=== PATIENT | male | born 1955 | race American Indian/Alaskan Native ===

== ENCOUNTER 2025-08-07 04:11 | Inpatient (IN) | payer MEDICARE, MEDICAID ==
[2025-08-07] VITALS (8 sets, daily range): BP systolic 102–145; BP diastolic 61–89; PULSE 52–82; RESP 12–18; TEMP 97.4–98.5; O2SAT 93–100
[~2025-08-07] VITALS: Ht 175.3 cm; Wt 95.0 kg
--- NOTE | 2025-08-07 04:23 | ELECTROCARDIOGRAPH REPORT ---
[facility] Test Date: 2025-08-07 Test Time: 04:15:48 Pat Name: YOVANA HIGH Department: EMERGENCY ROOM Room: [place] [address] Gender: M Seasoner Hand: DULCE : 1955 Requested By: EMI ANTHONY Order Number: [id number] Reading MD: Dr. Silver Anna Measurements Intervals [place] Rate: 79 P: 6 MD: 154 QRS: -34 QRSD: 103 T: 120 QT: 390 QTc: 448 Interpretive Statements Sinus rhythm Left axis deviation Nonspecific repol abnormality, lateral leads Electronically Signed On 08-08-2025 21:14:[address] Silver Anna Please click the below link to view image of tracing.
--- NOTE | 2025-08-07 04:43 | Physician Documentation ---
History of Present Illness ~ Chief Complaint: Shortness of Breath Stated Complaint: SOB A ALS Time Seen by MD: 04:43 HPI Patient presents to the emergency room with the acute onset shortness of breath this evening. No prior instances. He states he felt fine today however we will going to bed he developed shortness of breath. EMS on the scene found patient to be saturating 90% on room air. He denies diagnosis of COPD/asthma but does have a distant history of 30 pack years of smoking. No fevers. Denies one- sided leg pain Medication Reconciliation Allergies: Coded Allergies: dicloxacillin (Verified Allergy, Unknown, 08/07/25) Scheduled Aspirin (Aspirin EC), 1 TAB PO DAILY, (Reported) Atorvastatin Calcium (Atorvastatin Calcium), 1 TAB DAILY, (Reported) Carvedilol (Carvedilol), 1 TAB PO BID, (Reported) Cetirizine HCl (Cetirizine HCl), 1 TAB PO DAILY, (Reported) Duloxetine HCl (Duloxetine HCl), 1 CAP PO BID, (Reported) Insulin Lispro (Humalog), SQ TID, (Reported) Lisinopril (Lisinopril), 1 TAB PO DAILY, (Reported) Magnesium Oxide (Magnesium Oxide), 1 TAB PO DAILY, (Reported) Nabumetone (Nabumetone), 1 TAB PO BID, (Reported) Spironolactone (Spironolactone), 1 TAB PO DAILY, (Reported) Miscellaneous Medications Insulin Glargine-Yfgn (Insulin Glargine-Yfgn), (Reported) Review of Systems ROS All review of systems negative except as per HPI Physical Exam Vital Signs: Temperature: 98.5, Source: Oral, Heart Rate: 80, Respiratory Rate: 16, BP: 137/74, Pulse Oximetry: 93, Weight: 95.000 Oxygen Flow Rate: 2.0 Physical Exam General: Patient is awake, alert, oriented x4 in no acute distress and well appearing.~ Head: Normocephalic and atraumatic. Eyes: Conjunctival normal. EOMI. PERRL. ENT: Mucous membranes moist. Neck: Supple, trachea is midline. Chest: Clear to auscultation bilaterally without rales, rhonchi, or wheezes. There is no accessory muscle use or retractions. Cardiac: RRR without murmurs, gallops, or rubs. Abd: Soft, nondistended, nontender, with normoactive bowel sounds. No guarding, rebound, or rigidity. Progress Results/Orders Results/Orders Orders - BEN STREET MD Chest,Single View (08/07/25 04:22) Monitor (08/07/25 04:22) Saline Lock (08/07/25 04:22) Oxygen (08/07/25 04:22) Page Hospitalist (08/07/25 05:34) Fill Out Med Reconciliation (08/07/25 05:34) Completed Orders - BEN STRE[address] MD Chest,Single View (08/07/25 04:22) Cbc/Diff (08/07/25 04:22) BMP (08/07/25 04:22) PBNP (08/07/25 04:22) Electrocardiogram (08/07/25 04:22) Hs Troponin I W Calculations (08/07/25 04:22) Hs Troponin I W Calculations (08/07/25 06:22) Hs Troponin I W Calculations (08/07/25 07:22) Furosemide Inj (Lasix Inj) (08/07/25 05:35) Vital Signs 08/07/25 08/07/25 04:15 04:52 Temp 98.5 Pulse 80 Resp 16 19 B/P (MAP) 137/74 Pulse Ox 93 O2 Flow Rate 2.0 Laboratory Tests Test 08/07/25 04:52 White Blood Count 9.6 Red Blood Count 5.08 Hemoglobin 15.1 Hematocrit 44.1 Mean Corpuscular Volume 86.7 Mean Corpuscular Hemoglobin 29.6 Mean Corpuscular Hemoglobin Concent 34.2 Red Cell Distribution Width 14.2 Platelet Count 307 Mean Platelet Volume 9.1 Neutrophils (%) (Auto) 75.6 H Lymphocytes (%) (Auto) 14.5 L Monocytes (%) (Auto) 7.7 Eosinophils (%) (Auto) 1.3 Basophils (%) (Auto) 0.9 Neutrophils # (Auto) 7.2 Lymphocytes # (Auto) 1.4 Monocytes # (Auto) 0.7 Eosinophils # (Auto) 0.1 Basophils # (Auto) 0.1 CBC Comment Sodium Level 135 Potassium Level 4.1 Chloride Level 103 Carbon Dioxide Level 23.7 L Anion Gap 8 Blood Urea Nitrogen 14 Creatinine 0.79 Estimated GFR/1.73 m2 > 90 BUN/Creatinine Ratio 17.7 Glucose Level 290 H Calcium Level 8.9 Troponin I High Sensitivity 71 Pro-B-Type Natriuretic Peptide 965 H Albumin 3.2 L Chemistry Comments Medical Decision Making Additional information obtaine: old records Findings Patient presents to the emergency room with shortness of breath as per HPI. Workup consistent with possible new onset CHF. Lasix initiated. Patient that has not have a baseball glove stuffer and I believe he would benefit from admission Heart Score: 3 Differential Dx:Considerations: Include: anxiety, asthma, bronchitis, cardiogenic shock, CHF, COPD, dysrhythmia, hypertension, accelerated, hypertension, essential, hypertension, malignant, hyperventilation, hyponatremia, myocardial infarction, panic attack, pneumonia, pneumonitis, pneumothorax, PSVT, pulmonary embolism, respiratory distress, respiratory failure, sinusitis, upper resp. infection, other Departure Admitted to Inpatient Unit: yes, to hospitalist Impression: Primary Impression: New onset of congestive heart failure Condition: Guarded Referrals: NO PRIMARY CARE PROVIDER (PCP) Signature Scribe Signature: No scribe Attestation: The note accurately reflects work and decisions made by me.Ben Street MD 08/07/25 21:[address] MD Aug 07, 2025 04:43
--- NOTE | 2025-08-07 04:57 | RADIOLOGY REPORT ---
CHEST RADIOGRAPH INDICATION: CP TECHNIQUE: Single frontal view of the chest was obtained COMPARISON: None FINDINGS: Lines and Tubes: None Lungs: Mild diffuse increased prominence of the pulmonary vasculature. Left basilar pulmonary airspace disease. Pleura: No effusion. No pneumothorax. Cardiomediastinal contours: Cardiomegaly. Bones: Unremarkable IMPRESSION: 1. Cardiomegaly with mild pulmonary vascular congestion. 2. Left basilar pulmonary airspace disease.
[2025-08-07 05:09] LABS: MEAN PLATELET VOLUME 9.1 FL (7.4-10.4); RED CELL DISTRIBUTION WIDTH 14.2 % (11.5-14.5)
[2025-08-07 05:25] LABS: CREATININE 0.79 MG/DL (0.60-1.10); PRO BRAIN NATRIURETIC PEPTIDE 965 PG/ML (0-125); TOTAL CARBON DIOXIDE 23.7 MMOL/L (24-32); eCRCL 86 ML/MIN; eGFR > 90 ML/MIN
[2025-08-07] MEDS: furosemide 10 MG/1 ML 10ml inj IV ONE (05:35)
[2025-08-07] MEDS ORDERED: magnesium Cl slow-release 64mg tablet PO PRN (06:10)
[2025-08-07] MEDS ORDERED: magnesium hydroxide 30ml (MOM) UD suspension PO PRN (06:10)
[2025-08-07] MEDS ORDERED: magnesium sulf-water 2g/50mL 50 ML IV PRN (06:10)
[2025-08-07] MEDS ORDERED: potassium Cl 20 mEq SR tablet PO PRN ×2 (06:10)
[2025-08-07] MEDS ORDERED: mag hydrox/Alum hydrox/simeth 30ml oral suspension PO PRN (06:10)
[2025-08-07] MEDS ORDERED: magnesium sulf-water 4G/100mL 100 ML IV PRN (06:10)
[2025-08-07] MEDS ORDERED: ondansetron/PF 4mg/2ml inj IV PRN (06:10)
[2025-08-07] MEDS ORDERED: potassium Cl 40MEQ/1/2NS 520ml 520 ML IV PRN (06:10)
--- NOTE | 2025-08-07 06:19 | HISTORY AND PHYSICAL-Residence ---
History & Physical Providers to CC Resident Creating Document: CHRIS FERGUSON, FRANK ~ History of Present Illness Primary Medical Doctor: Ana Blunt Reason for Admit\Complaint: Shortness of breathe History of Present Illness 70-year-old male with past medical history of CAD status post CABG two-vessel, three-vessel in June 2024, type 2 diabetes mellitus, hypertension, hyperlipidemia, obstructive sleep apnea and without any formal CHF diagnosis came to ER with a chief complaints of shortness of breaths. He endorses that he got the shortness of breath from yesterday evening and he has been with shortness of breath for the past couple of weeks which got aggravated with walking for a while, associated with the orthopnea but not PND. He endorses irregular palpitations from this morning. He reports chest tightness, wheezing, cough with white mucoid sputum for the past 2-3 days. He reported decreased urine output and sleep disturbances and loss of appetite for the past 2 weeks. He also reported muscle cramps and swelling of the legs. Discussed code status with the patient and patient wants some time for decision and until then he wants us to continue full code. Allergies: Coded Allergies: dicloxacillin (Verified Allergy, Unknown, 08/07/25) Past Medical History Past Medical History CAD status post CABG Type 2 diabetes mellitus Hypertension Hyperlipidemia Obstructive sleep apnea Past Surgical History Surgical History Comment CABG double vessel and triple-vessel in June 2024 Family History Family History: Coronary artery disease in mother Past Social History Social History Comment He used to smoke 2 packs of cigarettes per day from the age of 39s but quit smoking in 2020 She denied alcohol, illicit drug use Living in home with family Smoking: Quit greater than 1 year ROS All Other Systems: Reviewed and Negative Constitutional: Reports: malaise, weakness Eyes: Reports: no symptoms reported ENT: Reports: no symptoms reported Respiratory: Reports: cough, orthopnea, shortness of breath, SOB at rest, wheezing Cardiovascular: Reports: edema, palpitations Gastrointestinal: Reports: no symptoms reported Genitourinary: Reports: no symptoms reported Male Genitalia: Reports: no symptoms reported Neurological: Reports: no symptoms reported Musculoskeletal: Reports: no symptoms reported Integumentary: Reports: no symptoms reported Allergic/Immunologic: Reports: no symptoms reported Hematologic/Lymphatic: Reports: no symptoms reported Endocrine: Reports: no symptoms reported Psychiatric: Reports: no symptoms reported Exam Vitals: Vital Signs Date Time Temp Pulse Resp B/P (MAP) Pulse Ox O2 Delivery O2 Flow Rate FiO2 08/07/25 04:52 19 08/07/25 04:15 98.5 80 93 2.0 General: General: Patient is awake, alert, oriented x4 in mild respiratory distress. On oxygen 2 L via nasal cannula Head: Normocephalic and atraumatic. Eyes: Conjunctival normal. EOMI. PERRL. Jugular venous distention is present ENT: Mucous membranes moist. Neck: Supple, trachea is midline. jugular venous distention is present . no carotid upstroke Chest and respiratory system: Bilateral basal inspiratory crepitations are heard . No wheezing There is no accessory muscle use or retractions. Cardiovascular system: Rate and rhythm is regular. Mathews S1. Loud S2 is present. Ejection systolic murmur 1-2 of 6 on aortic and pulmonary area. No gallops, or rubs. Abd: Soft, nondistended, nontender, with normoactive bowel sounds. No guarding, rebound, or rigidity. Central nervous system: Higher mental functions are intact. Motor system: Tone and bulk is normal. Power 5 x 5 in all limbs. Deep tendon reflexes are intact. No motor deficits are noted. Sensory system: Intact without any defects. No signs of cerebellar dysfunction and meningitis. Extremities : No pedal edema. No CVA tenderness. Skin: No rash, no ulcer, no cyanosis. Psychiatry: Affect and mood is normal Diagnostic Data Last Recorded Lab Results: 08/07/25 0452 08/07/25 0452 Advance Care Planning Advanced Care plannin - 30 Minutes Additional Plan Acute hypoxemic respiratory failure likely secondary to below 1)Acute CHF, new onset 2) obstructive sleep apnea with Possible pulmonary hypertension CBC is okay CMP showed blood glucose of 290 Troponin 71, proBNP 965 Chest x-ray showed cardiomegaly with bilateral pulmonary congestion. Left basilar pulmonary opacity Ordered echocardiogram Started on Lasix 40 mg IV b.i.d. Continued carvedilol 3.125 p.o. b.i.d., spironolactone 25 mg p.o. daily and we will add other GDMT medications of Jardiance, once we get the echocardiogram results. Type 2 diabetes mellitus Ordered A1c Blood glucose is 290 Started on hyperglycemic hypoglycemic insulin protocol with Lantus 18 units and high-dose Humalog supplemental protocol with a target of blood glucose between 140-180. Hypertension Blood pressure is 137 Started on losartan 50 mg p.o. daily Hyperlipidemia Ordered lipid panel Started on previous medication of atorvastatin 40 mg p.o. daily CAD status post CABG On aspirin 81 mg p.o. daily On atorvastatin 40 mg p.o. daily Obstructive sleep apnea Outpatient follow up with primary care physician and sleep physician Moderate protein malnutrition Hypoalbuminemia Started on ensure and live p.o. t.i.d. Code status: Full code DVT prophylaxis: SCDs and heparin Diet: Heart healthy diet Prognosis: Guarded Chris Ferguson IM resident, PGY2 Attending Physician Attestation Evaluation via HIPAA compliant A/V device. I discussed the case with the resident and I agree with the resident's documentation. 70-year-old man with a history of coronary artery disease s/p CABG, essential hypertension, dyslipidemia, diabetes mellitus type 2, and obstructive sleep apnea who now presents with symptoms and signs of acute congestive heart failure. The treatment plan includes: Diuresis to tolerance of BP and renal function. GDMT for congestive heart failure based on the results of a transthoracic echocardiogram. Aspirin and statin therapy for secondary CAD prevention. Control of hyperglycemia with a correctional insulin sliding scale. Time spent 50 minutes. Date of Service: Aug 07, 2025 Billing Provider: BRENDA ZHOU MD, VENKATESH, [facility] Aug 07, 2025 06:19 BRENDA ZHOU MD Aug 07, 2025 07:18
[2025-08-07] MEDS ORDERED: dextrose 50%-water 50ml dispensing syringe IV PRN ×2 (06:20)
[2025-08-07] MEDS ORDERED: glucagon, human recombinant 1mg kit SUBCUT PRN (06:20)
[2025-08-07] MEDS ORDERED: DEXTROSE 15 GM of carb/4 tabs (each vial/BOTTLE has 4 tablets) PO PRN ×2 (06:20)
[2025-08-07] MEDS: docusate sod 100mg capsule PO SCH (08:00)
[2025-08-07] MEDS: K and/or MAG REPLACEMENT MC SCH (08:00)
[2025-08-07] MEDS: INSULIN LISPRO 100 UNIT/ML INSULN.PEN MULTI-DOSE SQ SCH ×4 (09:06→21:19)
[2025-08-07] MEDS: Ensure Enlive - 237ML PO SCH (09:08)
[2025-08-07 09:10] LABS: CHOL/HDL RATIO 3.6 (0.00-4.99); CREATININE 0.89 MG/DL (0.60-1.10); LDL CHOLESTEROL 96 MG/DL (50-100); PHOSPHORUS 3.4 MG/DL (2.3-4.5); eCRCL 76 ML/MIN; eGFR 84 ML/MIN
[2025-08-07] MEDS: aspirin 81mg, enteric-coated 1 TAB TABLET.DR PO SCH (09:15)
[2025-08-07] MEDS: heparin, porcine 5000 units/ml vial SQ SCH (09:16)
[2025-08-07 09:19] LABS: APTT 27 SECONDS (22-32); INR 1.0 INR
[2025-08-07] MEDS ORDERED: CETI10TA14 PO (10:58)
[2025-08-07] MEDS ORDERED: CARV3.1244 PO (10:58)
[2025-08-07] MEDS ORDERED: INSU100I8 SQ (10:58)
[2025-08-07] MEDS ORDERED: NABU-139 PO (10:58)
[2025-08-07] MEDS ORDERED: ASPI-1397 PO (10:58)
[2025-08-07] MEDS ORDERED: ATOR40TA72 (10:58)
[2025-08-07] MEDS ORDERED: LISI2.5T14 PO (10:58)
[2025-08-07] MEDS ORDERED: MAGN400T56 PO (10:58)
[2025-08-07] MEDS ORDERED: SPIR25TA5 PO (10:58)
[2025-08-07] MEDS ORDERED: DULO20CA18 PO (10:58)
[2025-08-07] MEDS ORDERED: INSU100I99 (10:58)
--- NOTE | 2025-08-07 12:42 | CONSULTATION REPORT ---
History of Present Illness Providers to CC CC: DHEERAJ MCCULLOUGH MD ~ Reason for Admit\Admit Dx: Cardiology consultation Refering MD: Ana Blunt History of Present Illness Patient presents secondary to increased shortness for breath. He is followed by Dr. Alexander for Cardiology Services at the [facility]. He has known history of coronary artery disease status post three-vessel CABG in June 2024 followed by two-vessel redo CABG two weeks later. He has a uncontrolled diabetes mellitus, hypertension, hyperlipidemia, suspected sleep apnea. He states that he has had dyspnea on exertion for quite some time. He usually uses a motorized wheelchair when he goes grocery shopping. Yesterday he went to the [facility] in [place] and there was no motorized carts available. He walked around [facility] and felt very short of breath. He denies significant orthopnea or PND. He states he has difficulty sleeping. His recent cardiac tests were reviewed. In April 2025 had an echocardiogram that demonstrated an LVEF of 40%. He had a stress test that showed lateral defect that is fixed. Carotid ultrasound with very minimal carotid artery stenosis. There was moderate left subclavian stenosis noted. Currently, he is resting comfortably in bed. He is on room air. His high sensitivity troponins are minimally elevated. NT proBNP is very minimally elevated. Chest x-ray is clear. Allergies: Coded Allergies: dicloxacillin (Verified Allergy, Unknown, 08/07/25) Home Medications Home Medications Active Reported Humalog (Insulin Lispro) 100 Unit/Ml Insuln.pen SQ TID Insulin Glargine-Yfgn 100 Unit/Ml (3 Ml) Insuln.pen Lisinopril 2.5 Mg Tablet 1 Tab PO DAILY Magnesium Oxide 400 Mg (241.3 Mg Magnesium) Tablet 1 Tab PO HS Carvedilol 3.125 Mg Tablet 1 Tab PO BID Spironolactone 25 Mg Tablet 1 Tab PO DAILY Aspirin EC (Aspirin) 81 Mg Tablet. 1 Tab PO DAILY Cetirizine HCl 10 Mg Tablet 1 Tab PO Duloxetine HCl 20 Mg Capsule. 1 Cap PO BID Nabumetone 500 Mg Tablet 1 Tab PO BID Atorvastatin Calcium 40 Mg Tablet 1 Tab DAILY Past Medical History Medical History Comment Coronary artery disease Heart failure with reduced ejection fraction Uncontrolled type 2 diabetes mellitus Hypertension Hyperlipidemia Sleep apnea Past Surgical History Surgical History Comment Three-vessel CABG in June 2024 followed by two-vessel CABG redo Past Family History Family History: Bilateral below knee amputation MOTHER, Coronary artery disease in mother MOTHER, End stage renal disease MOTHER, FH: CABG (coronary artery bypass surgery) MOTHER, FH: diabetes mellitus FATHER, MOTHER, FH: hypertension FATHER, MOTHER, Past Social History Social History Comment Patient states he quit smoking greater than year ago. Denies drug or alcohol use. Physical Exam Last Vital Signs Recorded: RN Vital Signs have been reviewed: Yes, Temperature: 97.6, Source: Oral, Heart Rate: 78, Respiratory Rate: 15, BP: 146/89, Pulse Oximetry: 93, Weight: 95.000 Physical Exam General: Awake, alert, oriented. No apparent distress Neck: Supple. Normal range of motion. No JVD Respiratory: Lungs are clear to auscultation bilaterally. No respiratory distress. Chest: Normal shape and size. No accessory muscle use. Cardiovascular: Regular rate and rhythm. S1-S2. No murmur, gallop, rub. Extremities: No lower extremity edema, cyanosis or clubbing. Neurologic: Alert and oriented x4. Nonfocal Psychiatric: Normal mood and affect. Skin: Normal color. Warm and dry. Review of Systems ROS Review of systems negative except documented in HPI. Results EKG EKG EKG August 07, 2025 4:15 a.m.. Sinus rhythm: Left axis deviation. Nonspecific ST-T changes. Echocardiogram Echocardiogram Echocardiogram May 15, 2025 [facility]: LVEF 40%. Moderate LVH. Inferolateral akinesis. Anterolateral hypokinesis. Moderately dilated left atrium. Normal valve function. Cardiac Stress Test Cardiac Stress Test Stress test performed April 17, 2025 at the [facility] reveals a fixed lateral defect Diagram Lab Result Diagram: 08/07/25 0452 08/07/25 0842 Assessment/Plan Additional Plan Patient presents secondary to shortness for breath. The following is his problem list: NSTEMI No chest pain or pressure Started on heparin by the hospitalist service Lipids were checked in his LDL cholesterol is 96 --high intensity statin to keep LDL less than 55 --aspirin 81 mg daily for life --continue home Coreg --Cont med mgt and risk factor modification. Outpatient follow up. Heart failure with reduced ejection fraction, acute on chronic Presented with increased shortness for breath LVEF 40% --continue guideline directed medical therapy with Coreg, spironolactone, lisinopril. Consider addition of SGLT2 inhibitor Uncontrolled diabetes mellitus with hemoglobin A1c 10.1 --management per his primary team Subclavian stenosis --recommend monitoring blood pressure on the right arm Other comorbidities: Hypertension Hyperlipidemia Sleep apnea Case discussed with Dr. bharti Mccullough who agrees with the above. Supervising MD Supervising Physician: MARY ANN Narayan NP Aug 07, 2025 12:42
[2025-08-07 13:01] LABS: APTT 27 SECONDS (22-32); INR 1.1 INR
[2025-08-07] MEDS: heparin 10,000 units/1 ML INJ IV ONE (13:09)
[2025-08-07] MEDS: heparin 25,000 UNIT/250ml bag 250 ML IV PRN (13:10)
[2025-08-07] MEDS: MESSAGE TO NURSING IV ONE ×2 (13:16→21:00)
[2025-08-07] MEDS ORDERED: HYDROcodone/acetaminophen 10/325mg tab PO PRN (16:55)
[2025-08-07] MEDS: HYDROcodone/acetaminophen 5mg/325mg tablet PO PRN (16:56)
--- NOTE | 2025-08-07 17:07 | PROGRESS NOTE ---
Daily Progress Note Providers to CC ~ Antibiotic Timeout Antibiotic Ordered?: No Subjective The patient is troponin up trended to 367- the patient informed me he has been short of breath and was sweaty earlier but never experienced chest pain the patient is evaluated by Dr. Margaux Mccullough pacs specialist's who recommended medical management- that is the patient will remain on heparin drip for 48 hours which was started this morning. Echocardiogram is pending however cardiology informed me the patient has a an LVEF of 40% and recommended adding an SGLT2 inhibitor that is I will start the patient on Jardiance. Objective Vital Signs Date Time Temp Pulse Resp B/P (MAP) Pulse Ox O2 Delivery O2 Flow Rate FiO2 08/07/25 15:00 97.8 52 17 102/62 (75) 100 Room Air 08/07/25 09:10 1.0 Result Diagram: 08/07/25 0452 08/07/25 0842 Gen. No acute distress alert and oriented 4 Lungs clear to ascultation bilaterally, no wheezes rales or rhonchi appreciated Heart normal sinus rhythm no murmurs rubs or clicks noted Abdomen soft nontender bowel sounds are normoactive Lower extremities no clubbing cyanosis, nor edema appreciated bilaterally Coagulation Studies Laboratory Tests Test 08/07/25 12:30 Prothrombin Time 10.8 SECONDS (9.0-12.0) INR International Normalized Ratio 1.1 INR Activated Partial Thromboplast Time 27 SECONDS (22-32) Coagulation Comments Problem\Assessment\Plan Problems/Diagnosis: (1) Acute HFrEF (heart failure with reduced ejection fraction) # acute exacerbation of chronic HFrEF- the patient has a echocardiogram in April at Dr. Mccullough's office with a LVEF of 40% Echocardiogram pending Cardiology recommended continuing carvedilol, spironolactone, lisinopril and adding an SGLT2 inhibitor-start Jardiance Daily IV Lasix # NSTEMI Cardiology recommended medical management Continue aspirin 81 mg daily for life Increase Lipitor to 80 mg We will continue heparin drip for 48 hours Continue home carvedilol # insulin-dependent diabetes mellitus uncontrolled hemoglobin A1c of 10.1 blood sugars are 300s of times High dose sliding scale insulin 18 units of Lantus HS 7 units of insulin postprandial # obstructive sleep apnea Outpatient sleep study Date of Service: Aug 07, 2025 Billing Provider: JANIE NELSON DO Common Visit Codes: NOT BILLABLE (Admitted after midnight to be billed by braider setter) JANIE NELSON DO Aug 07, 2025 17:07
[2025-08-07] MEDS: duloxetine 20mg capsule.DR PO SCH (19:20)
[2025-08-07] MEDS: insulin glargine (Lantus) pen - multi-dose SQ SCH (21:19)
[2025-08-08] VITALS (8 sets, daily range): BP systolic 114–162; BP diastolic 51–77; PULSE 64–80; RESP 15–25; TEMP 97.4–98; O2SAT 94–96
[2025-08-08 01:49] LABS: MEAN PLATELET VOLUME 9.0 FL (7.4-10.4); RED CELL DISTRIBUTION WIDTH 14.5 % (11.5-14.5)
[2025-08-08 02:17] LABS: CREATININE 0.85 MG/DL (0.60-1.10); TOTAL CARBON DIOXIDE 26.5 MMOL/L (24-32); eCRCL 80 ML/MIN; eGFR 89 ML/MIN
[2025-08-08] MEDS: heparin 10,000 units/1 ML INJ IV PRN (03:02)
[2025-08-08] MEDS: MESSAGE TO NURSING IV ONE ×3 (03:58→19:00)
[2025-08-08] MEDS ORDERED: aspirin 81mg, enteric-coated 1 TAB TABLET.DR PO SCH (08:00)
[2025-08-08] MEDS: INSULIN LISPRO 100 UNIT/ML INSULN.PEN MULTI-DOSE SQ SCH (09:15)
[2025-08-08] MEDS: EMPAGLIFLOZIN 10 MG TABLET PO SCH (09:21)
--- NOTE | 2025-08-08 17:39 | CARDIOLOGY REPORT ---
APPROVED REPORT EXAM: Comprehensive 2D, Doppler, and color-flow Echocardiogram. Patient Location: 302 Blood Pressure: 126/ 66 mmHg Heart Rate: 66 bpm Rhythm: SINUS Indications CONGESTIVE HEART FAILURE CORONARY DISEASE - CABG X 3 06/2024, CABG X 2 06/2024 HYPERTENSION HYPERLIPIDEMIA SHORT OF BREATH Mine Foreman: Karla Mccullough MD Previous echo: NONE AVAILABLE, AFTER HRS 2D Dimensions RVDd 2.6 cm IVSd 1.1 (0.7-1.1cm) LVDd 6.1 cm PWd 1.2 (0.7-1.1cm) LVOT Diameter 2.25 (1.8-2.4cm) CO 6.9 L/min M-Mode Dimensions Left Atrium(MM) 5.03 (2.5-4.0cm) IVSd 1.56 (0.7-1.1cm) LVDd 6.14 (4.0-5.6cm) Aortic Root 3.83 (2.2-3.7cm) PWd 1.66 (0.7-1.1cm) Aortic Cusp Exc 2.37 (1.5-2.0cm) IVSs 2.27 cm MV EPSS 1.5 (<0.5cm) LVDs 4.53 (2.0-3.8cm) FS (%) 29 % PWs 2.06 cm ESV(Teich) 86.9 ml LVEF(%) 54 (>50%) Aortic Valve AoV Peak Juan A. 124.2 cm/s AoV VTI 22.9 cm AO Peak GR. 6.2 mmHg AO Mean GR. 3 mmHg LVOT VTI 21.82 cm LVOT Peak Juan A. 104.3 cm/s ROSAURA(VTI)/BSA 3.77 cm2/m2 ROSAURA (VTI) 3.77 cm2 AV DI 0.95 % Mitral Valve MV E Velocity 51.6 cm/s MV Peak Gr. 1 mmHg MV DECEL TIME 236 ms MV A Velocity 65.4 cm/s MV PHT 76 ms E/A Ratio 0.8 MVA (PHT) 2.89 cm2 MV VMax 55.3 cm/s TDI Medial E' P. V 3.78 cm/s E/Medial E' 13.7 Pulmonary Vein S1 Velocity 30.7 cm/s D2 Velocity 34.2 cm/s PVa Velocity 28.1 cm/s PVa Duration 112 msec LEFT VENTRICLE Mildly increased LV size with mildly reduced function. Mild concentric hypertrophy. Mild inferior, lateral, and apical hypokinesis. LVEF is 45- 50%.(best appreciated apically) RIGHT VENTRICLE RV is normal size with adequate function. ATRIA Left atrium is severely dilated. AORTIC VALVE Trileaflet AV appears mildly sclerotic without stenosis. Mild insufficiency by color and spectral flow Doppler. MITRAL VALVE Mild MV annular calcification with leaflet thickening without stenosis. Trace regurgitation by color and spectral flow Doppler. TRICUSPID VALVE TV appears structurally normal with trace regurgitation by color and spectral flow Doppler. PULMONIC VALVE Normal PV without stenosis, physiologic insufficiency by color and spectral flow Doppler. GREAT VESSELS Aortic root is mildly dilated. Normal appearing arch with normal flow velocities. Ascending aorta is grossly normal in size. (not well visualized.) PERICARDIUM Normal pericardium. No effusion. Prominent anterior epicardial fat pad. Other Information Study Quality: Adequate, no subcostal window Conclusion Mildly increased LV size with mildly reduced function. Mild concentric hypertrophy. Mild inferior, lateral, and apical hypokinesis. LVEF is 45-50%. RV is normal size with adequate function. Left atrium is severely dilated. Trileaflet AV appears mildly sclerotic without stenosis. Mild insufficiency by color and spectral flow Doppler. Mild MV annular calcification with leaflet thickening without stenosis. Trace regurgitation by color and spectral flow Doppler. TV appears structurally normal with trace regurgitation by color and spectral flow Doppler. Aortic root is mildly dilated. Normal appearing arch with normal flow velocities. Ascending aorta is grossly normal in size. Normal pericardium. No effusion. Prominent anterior epicardial fat pad.
--- NOTE | 2025-08-08 19:13 | PROGRESS NOTE ---
Daily Progress Note Providers to CC ~ Antibiotic Timeout Antibiotic Ordered?: No Subjective The patient continues to complain of cramping in his legs initially magnesium help some in the took a [place] which helped however he developed cramping again I did add 5 mg of PRN diazepam. The patient was hoping to go home I informed him that I wanted to continue with the heparin drip for additional 24 hours. Objective Vital Signs Date Time Temp Pulse Resp B/P (MAP) Pulse Ox O2 Delivery O2 Flow Rate FiO2 08/08/25 11:00 97.4 77 18 116/71 (86) 94 Room Air 08/07/25 09:10 1.0 Result Diagram: 08/08/25 0140 08/08/25 0140 Gen. No acute distress alert and oriented 4 Lungs clear to ascultation bilaterally, no wheezes rales or rhonchi appreciated Heart normal sinus rhythm no murmurs rubs or clicks noted Abdomen soft nontender bowel sounds are normoactive Lower extremities no clubbing cyanosis, nor edema appreciated bilaterally Coagulation Studies Laboratory Tests Test 08/07/25 12:30 08/08/25 17:25 Prothrombin Time 10.8 SECONDS (9.0-12.0) INR International Normalized Ratio 1.1 INR Activated Partial Thromboplast Time 27 SECONDS (22-32) APTT (Heparin Protocol) 29 SECONDS (45-60) L Coagulation Comments Problem\Assessment\Plan Problems/Diagnosis: (1) Acute HFrEF (heart failure with reduced ejection fraction) # acute exacerbation of chronic HFrEF- the patient has a echocardiogram in April at Dr. Mccullough's office with a LVEF of 40% Echocardiogram demonstrates an LVEF of 45-50% Cardiology recommended continuing carvedilol, spironolactone, lisinopril and adding an SGLT2 inhibitor-start Jardiance Daily IV Lasix # NSTEMI Cardiology recommended medical management That has mild inferior, lateral and apical hypokinesis on echocardiogram Continue aspirin 81 mg daily for life Increase Lipitor to 80 mg We will continue heparin drip for 48 hours Continue home carvedilol # insulin-dependent diabetes mellitus uncontrolled hemoglobin A1c of 10.1 blood sugars are 300s of times High dose sliding scale insulin 18 units of Lantus HS 7 units of insulin postprandial 08/08 increase Lantus to 24 units, blood glucose is improving # obstructive sleep apnea Outpatient sleep study Disposition: Anticipate discharge home in the a.m. Date of Service: Aug 08, 2025 Billing Provider: JANIE NELSON DO Common Visit Codes: [id number] INP/OBS CARE(HIGH) JANIE NELSON DO Aug 08, 2025 19:13
[2025-08-08] MEDS: insulin glargine (Lantus) pen - multi-dose SQ SCH (20:42)
[2025-08-09 01:30] LABS: MEAN PLATELET VOLUME 9.1 FL (7.4-10.4); RED CELL DISTRIBUTION WIDTH 14.4 % (11.5-14.5)
[2025-08-09 01:48] LABS: CREATININE 0.86 MG/DL (0.60-1.10); TOTAL CARBON DIOXIDE 26.5 MMOL/L (24-32); eCRCL 79 ML/MIN; eGFR 88 ML/MIN
[2025-08-09 02:00] VITALS: BP 146/77; PULSE 67; RESP 14; TEMP 98; O2SAT 95
[2025-08-09 06:00] VITALS: BP 144/81; PULSE 72; RESP 14; TEMP 97.4; O2SAT 100
[2025-08-09 08:00] VITALS: RESP 17; O2SAT 95
[2025-08-09] MEDS: MESSAGE TO NURSING IV ONE ×3 (10:34→10:50)
[2025-08-09 11:00] VITALS: BP 105/51; PULSE 60; RESP 15; TEMP 97.6; O2SAT 95
[2025-08-09] MEDS ORDERED: EMPA10TA PO ×2 (12:57→19:03)
[2025-08-09] MEDS ORDERED: FURO40TA4 PO ×2 (12:57→19:03)
[2025-08-09] MEDS ORDERED: DIAZ-351 PO (12:57)
[2025-08-09] MEDS ORDERED: DIAZ5TAB22 PO (19:03)
--- NOTE | 2025-08-09 19:12 | DISCHARGE SUMMARY ---
Discharge Summary Providers to CC ~ Discharge Summary Admission Diagnosis: CHF Hospital Course DATE OF ADMISSION: 08/07/2025 DATE OF DISCHARGE: 08/09/2025 Discharge Diagnosis\\Comment: Acute exacerbation of chronic HFrEF NSTEMI Insulin-dependent diabetes mellitus Muscle cramps Obstructive sleep apnea Operations\\Procedures: None Consultants: Dr Liberty Mccullough rotary cutter Complications: None Condition on DC: Stable New Medications: Diazepam* (Valium*) 5 Mg Tablet 1 TAB PO Q8H PRN for muscle spasms, #20 TAB Empagliflozin (Jardiance) 10 Mg Tablet 1 TAB PO DAILY for 30 Days, #30 TAB 0 Refills Furosemide (Furosemide) 40 Mg Tablet 1 TABLET PO DAILY, #30 TABLET Continued Medications: Aspirin (Aspirin EC) 81 Mg Tablet.dr 1 TAB PO DAILY Atorvastatin Calcium (Atorvastatin Calcium) 40 Mg Tablet 1 TAB DAILY Carvedilol (Carvedilol) 3.125 Mg Tablet 1 TAB PO BID Cetirizine HCl (Cetirizine HCl) 10 Mg Tablet 1 TAB PO DAILY Duloxetine HCl (Duloxetine HCl) 20 Mg Capsule.dr 1 CAP PO BID Insulin Glargine-Yfgn (Insulin Glargine-Yfgn) 100 Unit/Ml (3 Ml) Insuln.pen Insulin Lispro (Humalog) 100 Unit/Ml Insuln.pen SQ TID Lisinopril (Lisinopril) 2.5 Mg Tablet 1 TAB PO DAILY Magnesium Oxide (Magnesium Oxide) 400 Mg (241.3 Mg Magnesium) Tablet 1 TAB PO DAILY Nabumetone (Nabumetone) 500 Mg Tablet 1 TAB PO BID Spironolactone (Spironolactone) 25 Mg Tablet 1 TAB PO DAILY Discharge Summary: The patient is admitted by resident physician [facility] , under the supervision of BRENDA Diane MD with the following HPI:"70-year-old male with past medical history of CAD status post CABG two-vessel, three-vessel in June 2024, type 2 diabetes mellitus, hypertension, hyperlipidemia, obstructive sleep apnea and without any formal CHF diagnosis came to ER with a chief complaints of shortness of breaths. He endorses that he got the shortness of breath from yesterday evening and he has been with shortness of breath for the past couple of weeks which got aggravated with walking for a while, associated with the orthopnea but not PND. He endorses irregular palpitations from this morning. He reports chest tightness, wheezing, cough with white mucoid sputum for the past 2-3 days. He reported decreased urine output and sleep disturbances and loss of appetite for the past 2 weeks. He also reported muscle cramps and swelling of the legs. Discussed code status with the patient and patient wants some time for decision and until then he wants us to continue full code." The patient had informed me that he was having chest pain prior to coming in and was short of breath serum troponin up trended and was 367 obtain a cardiology consult and Dr. Margaux Mccullough rotary cutter's recommended medical management the patient remained on heparin drip for 48 hours by the morning of the the patient is chest pain had resolved. The patient is experiencing significant cramping in his calves which was relieved with diazepam the patient requested diazepam for discharge and the patient received 20 tablets of 5 mg diazepam one tablet every 8 hours. I recommended the patient take Co Q10 as he may be experiencing a side-effect from the atorvastatin he is taking in his to follow up with his rotary cutter's. The patient is acute exacerbation of chronic HFrEF however his LVEF is improved from previously 40% now 45-50% cardiology recommended continuing home medications however adding Jardiance the patient also was on IV Lasix and discharged with a prescription for p.o. Lasix 40 mg daily. The patient has insulin-dependent diabetes mellitus his hemoglobin A1c is 10.1 his blood sugars were an upwards of 300s up titrated his Lantus to 24 units and 7 units of postprandial insulin has a high dose sliding scale I recommended the patient follow this diabetic regimen and type of the by sliding scale the franco ent appears to be taking a higher dose of his basilar insulin insulin glargine depending on his blood glucose readings. The patient is blood glucose on the day of discharge was in the 190s he had one reading at noon however thus 223 however his control was significantly improved from that of admission status. Gen. No acute distress alert and oriented 4 Lungs clear to ascultation bilaterally, no wheezes rales or rhonchi appreciated Heart normal sinus rhythm no murmurs rubs or clicks noted Abdomen soft nontender bowel sounds are normoactive Lower extremities no clubbing cyanosis, nor edema appreciated bilaterally The patient felt ready to be discharged and was medically cleared to be discharged on 08/09/2025 The patient was seen and evaluated on day of discharge. Time spent on discharge 25 minutes *Problems/Diagnosis: (1) Acute HFrEF (heart failure with reduced ejection fraction) Total Time Spent on D/C: > 30 Minutes Date of Service: Aug 09, 2025 Billing Provider: JANIE NELSON DO Common Visit Codes: 12658-FFO/OBS DISCH DAY >30min JANIE NELSON DO Aug 09, 2025 19:12
== END 2025-08-09 15:05 | disposition home or self-care (01) | DRG 280 ==
LOC: ER 04:12 → ED HOLD 05:47 → PCU 3S 09:57
PROVIDERS: ADMIT Internal Medicine Critical Care Medicine; ATTEND Family Medicine
DX: I11.0 Hypertensive heart disease with heart failure (principal); I50.23 Acute on chronic systolic (congestive) heart failure; I21.4 Non-ST elevation (NSTEMI) myocardial infarction; Z95.1 Presence of aortocoronary bypass graft; E11.9 Type 2 diabetes mellitus without complications; G47.33 Obstructive sleep apnea (adult) (pediatric); E78.5 Hyperlipidemia, unspecified; R25.2 Cramp and spasm; I25.10 Atherosclerotic heart disease of native coronary artery without angina pectoris; Z88.1 Allergy status to other antibiotic agents; Z79.82 Long term (current) use of aspirin; Z79.899 Other long term (current) drug therapy; Z79.4 Long term (current) use of insulin; Z87.891 Personal history of nicotine dependence
CPT/HCPCS: 36415; 71045; 80048; 80053; 80061; 82565; 82948; 83036; 83735; 83880; 84100; 84132; 84484; 85025; 85610; 85730; 87081; 93005; 93306; 96365; 99285; G0378; J1644; J1815; J1938